=== PATIENT | male | born 1955 | race Caucasian/White ===

== ENCOUNTER → 2016-11-08 | Outpatient (CLI) | payer BC ==
[~2016-11-08] MED LIST: BPR150TCR; OMEP20CA12 PO; SMV20T; SULF1TAB35 PO; TADA2.5T PO
--- NOTE | 2016-11-08 19:01 | Diagnostic Imaging Report ---
PROCEDURE: US Carotid Duplex Bilateral. TECHNIQUE: Multiple real-time grayscale images were obtained over the carotid arteries in various projections bilaterally. Additional duplex Doppler and color Doppler images were also obtained. INDICATION: Lightheaded, syncope. COMPARISON: None. FINDINGS: Minimal irregular plaque is seen in the carotid bulbs. There is no occlusion or stenosis. The systolic velocities and ratios are normal. Flow in the vertebral arteries is antegrade. IMPRESSION: Minimal carotid atherosclerosis without stenosis or occlusion. Dictated by: Dictated on workstation # [id number]
== END ==
LOC: RAD 17:01
PROVIDERS: ATTEND Internal Medicine
DX: R55 Syncope and collapse (principal); R42 Dizziness and giddiness
CPT/HCPCS: 93880

== ENCOUNTER → 2018-07-21 | Outpatient (CLI) | payer BC ==
--- NOTE | 2018-07-21 15:09 | Diagnostic Imaging Report ---
PROCEDURE: CT head without contrast. TECHNIQUE: Multiple contiguous axial images were obtained through the brain without the use of intravenous contrast. Auto Exposure Controls were utilized during the CT exam to meet ALARA standards for radiation dose reduction. INDICATION: Hemiplegia and hemiparesis. COMPARISON: No prior studies are available for comparison. FINDINGS: Ventricles and sulci are within normal limits. No sulcal effacement or midline shift is seen. No acute intra-axial or extra-axial hemorrhage is detected. Cisterns are patent. Visualized paranasal sinuses are clear. IMPRESSION: No acute intracranial process is detected. Dictated by: Dictated on workstation # [id number]
== END ==
LOC: RAD 14:47
PROVIDERS: ATTEND Internal Medicine
DX: I69.354 Hemiplegia and hemiparesis following cerebral infarction affecting left non-dominant side (principal)
CPT/HCPCS: 70450

== ENCOUNTER 2020-02-14 05:38 | Outpatient (RCR) | payer BC ==
[~2020-02-14] VITALS: Ht 177.8 cm; Wt 83.6 kg
[~2020-02-14 05:38] MED LIST changes: +BUSP15TA60 PO; +CHOL10002 PO; +MODA100T27 PO; +MULT-1104 PO; +OMEG1CAP58 PO; +PANT40TA52 PO; +SIMV20TA26 PO; +TADA5TAB13 PO; +UBID100C44 PO; +VORT20TA PO; +ZINC50TA58 PO
== END 2020-02-14 09:15 | disposition home or self-care (01) ==
LOC: PREOP 05:38
PROVIDERS: ATTEND Surgery
DX: Z01.812 Encounter for preprocedural laboratory examination (principal); Z12.2 Encounter for screening for malignant neoplasm of respiratory organs; K21.9 Gastro-esophageal reflux disease without esophagitis; Z80.0 Family history of malignant neoplasm of digestive organs; Z20.828 Contact with and (suspected) exposure to other viral communicable diseases
CPT/HCPCS: 87635

== ENCOUNTER 2020-02-19 09:47 | Day surgery (SDC) | payer BC ==
[2020-02-19] VITALS (11 sets, daily range): BP systolic 109–140; BP diastolic 53–89
[~2020-02-19] VITALS: Ht 178 cm; Wt 83.6 kg
[2020-02-19] MEDS ORDERED: LACTATED RINGERS 1,000 ML IV STA (09:58)
[2020-02-19] MEDS ORDERED: HURRICAINE EXT TUBE (BENZOCAINE) XX PRN (10:00)
--- NOTE | 2020-02-19 12:23 | Progress Note-Pre Operative ---
Pre-Operative Progress Note H&P Reviewed The H&P was reviewed, patient examined and no changes noted. Date Seen by Provider: Feb 19, 2020 Time Seen by Provider: 12:23 Date H&P Reviewed: Feb 19, 2020 Time H&P Reviewed: 12:23 Pre-Operative Diagnosis: gerd, family hx colon ca DANDRE AG DO Feb 19, 2020 12:23
[2020-02-19] MEDS ORDERED: MIDAZOLAM 2 MG/2 ML (VERSED) VIAL ONE (13:36)
[2020-02-19] MEDS ORDERED: PROPOFOL INJECTION 50 ML IV ONE (13:36)
--- NOTE | 2020-02-19 14:18 | Progress Note-Post Operative ---
Post-Operative Progess Note Surgeon (s)/Hris Developer (s) Surgeon DANDRE AG DO Hris Developer: n/a Pre-Operative Diagnosis gerd, family hx colon ca Post-Operative Diagnosis Reflux esophagitis Colon polyps Prostate nodule Procedure & Operative Findings Date of Procedure 02/19/20 Procedure Performed/Findings EGD with biopsies, colonoscopy with hot bx polypectomy x 3 Anesthesia Type per [employer] COORDINATOR Estimated Blood Loss Estimated blood loss (mL): none Specimens/Packing Specimens Removed Transverse colon polyp x2 Sigmoid colon polyp x1 Antrum x1 GE x1 DANDRE AG DO Feb 19, 2020 14:18
--- NOTE | 2020-02-19 14:19 | Discharge Inst-Simple/Standard ---
Discharge Inst-Standard Patient Instructions/Follow Up Plan of Care/Instructions/FU: 2 weeks Charlene Follow up with Urology. Activity as Tolerated: Yes Discharge Diet: Regular Diet DANDRE AG DO Feb 19, 2020 14:19
--- NOTE | 2020-02-19 22:40 | OPERATIVE REPORT ---
DATE OF SERVICE: 02/19/2020 PREOPERATIVE DIAGNOSES: Gastroesophageal reflux disease, family history of colon cancer. POSTOPERATIVE DIAGNOSES: Reflux esophagitis, colon polyps, small prostate nodule. PROCEDURE: EGD with biopsies, colonoscopy with hot biopsy polypectomy x3. SURGEON: Dandre Chang DO ANESTHESIA: Per W[employer] SPIRAL BINDER. ESTIMATED BLOOD LOSS: None. COMPLICATIONS: None. SPECIMENS: Colon polyps, antrum and GE junction. INDICATIONS: The patient is a 64-year-old male needing EGD and colonoscopy. He understands risks and benefits of procedures and wished to proceed with procedure. Consent was signed in the chart. DESCRIPTION OF PROCEDURE: The patient was taken to the endoscopy suite, placed in left lateral recumbent position. Timeout was performed. Scope was inserted in mouth, down the esophagus, stomach and into the duodenum without difficulty. No polyps, masses or ulcerations of the duodenum. Scope was slowly retracted back into the stomach where it was further insufflated. No polyps. There are no masses or ulcerations. Some couple of benign appearing polyps were present. Biopsy of the antrum was obtained. Scope was retroflexed noting no other pathology. Scope was returned to its normal position, slowly withdrawn to the distal esophagus. Some slight changes of reflux esophagitis. Biopsy was obtained. Scope was then slowly retracted back until completely removed noting no other pathology. Digital rectal exam was performed. There were no palpable polyps, masses or ulcerations. A small prostate nodule in the left upper portion feels like. Scope was inserted in the rectum, advanced all the way to the cecum with minimal difficulty. Prep was adequate. Scope was then slowly retracted back. No polyps, masses or ulcerations within the cecum, ascending colon. In the transverse colon, two small polyps were present, which hot biopsy polypectomies were performed. Scope was then continuously slowly retracted back. No polyps, masses or ulcerations within the descending colon. In the sigmoid colon, a small polyp was present, which hot biopsy polypectomy was performed. Scope was then slowly retracted back into the rectum, where it was also retroflexed noting no other pathology. Scope was returned to its normal position, slowly withdrawn until completely removed. The patient tolerated procedure well without any complications, taken to recovery room in stable condition. RECOMMENDATIONS: The patient with small prostate nodule, would follow up with urology. The patient with a colon polyp. He will follow up in the office in 2 weeks to discuss pathology results. The patient with some slight reflux esophagitis appearance. We will await biopsies. Continue current medications. Patient will need repeat colonoscopy in 5 years. Any issues before that be seen at that time. Job ID: [id number] DocumentID: [id number] Dictated Date: 02/19/2020 14:23:17 Software Tools Build Engineer Date: 02/19/2020 22:39:34 Dictated By: DANDRE CHANG DO
== END 2020-02-19 15:20 | disposition home or self-care (01) ==
LOC: ENDO 09:47
PROVIDERS: ATTEND Surgery
DX: K63.5 Polyp of colon (principal); K21.00 Gastro-esophageal reflux disease with esophagitis, without bleeding; N40.2 Nodular prostate without lower urinary tract symptoms; K21.9 Gastro-esophageal reflux disease without esophagitis; E78.00 Pure hypercholesterolemia, unspecified; Z79.899 Other long term (current) drug therapy; Z88.8 Allergy status to other drugs, medicaments and biological substances; Z83.3 Family history of diabetes mellitus; Z80.0 Family history of malignant neoplasm of digestive organs
CPT/HCPCS: 88305

== ENCOUNTER → 2022-12-23 | Outpatient (CLI) | payer MEDICARE, BC ==
[~2022-12-23] MED LIST changes: +CHOL-34 PO; -CHOL10002 PO
--- NOTE | 2022-12-23 20:08 | Diagnostic Imaging Report ---
INDICATION: Abdominal pain. COMPARISON: None available. TECHNIQUE: Two radiographs of the abdomen dated 12/23/2022. FINDINGS: The visualized lung bases are clear. Moderate amount of stool is identified throughout the ascending, transverse, and descending colon with the sigmoid colon predominantly gas filled. No abnormally dilated loops of small bowel. No differential air-fluid levels. No free air. Phleboliths within the lower pelvis. No suspicious calcifications overlying the renal shadows. No acute osseous abnormality. IMPRESSION: Moderate amount of stool throughout the colon as described above, likely related to constipation. No small bowel obstruction or free air. Dictated by: Dictated on workstation # [id number]
== END ==
LOC: RAD 17:32
PROVIDERS: ATTEND Internal Medicine
DX: R10.9 Unspecified abdominal pain (principal)
CPT/HCPCS: 74018